=== PATIENT | male | born 1975 | race African-American/Black ===

== ENCOUNTER 2019-03-09 04:13 | Emergency (ER) | payer MEDICAID ==
[~2019-03-09] VITALS: Ht 180.3 cm; Wt 80.0 kg
[2019-03-09 07:05] VITALS: BP 124/83
== END 2019-03-09 07:07 | disposition home or self-care (01) ==
LOC: ER 05:37
DX: F90.9 Attention-deficit hyperactivity disorder, unspecified type (principal)
CPT/HCPCS: 99281

== ENCOUNTER 2019-05-18 15:29 | Emergency (ER) | payer MEDICAID ==
[~2019-05-18] VITALS: Ht 180.3 cm; Wt 80.0 kg
[2019-05-18 15:58] VITALS: BP 129/90
== END 2019-05-18 19:26 | disposition home or self-care (01) ==
LOC: ER 15:29
DX: F90.9 Attention-deficit hyperactivity disorder, unspecified type (principal)
CPT/HCPCS: 99281